=== PATIENT | female | born 1980 | race African-American/Black ===

== ENCOUNTER 2017-08-27 19:39 | Outpatient (CLI) | payer OTHER ==
[~2017-08-27] VITALS: Ht 172.7 cm; Wt 135.0 kg
[2017-08-27 19:54] VITALS: BP 118/68
[2017-08-27] MEDS ORDERED: PRENTAB9 PO (20:04)
[2017-08-27 20:45] VITALS: BP 122/70
== END 2017-08-27 21:04 | disposition home or self-care (01) ==
LOC: M LDO 19:39
PROVIDERS: ATTEND Obstetrics & Gynecology
DX: O47.1 False labor at or after 37 completed weeks of gestation (principal); Z3A.40 40 weeks gestation of pregnancy; O99.213 Obesity complicating pregnancy, third trimester; Z88.0 Allergy status to penicillin

== ENCOUNTER 2017-08-29 12:25 | Inpatient (IN) | payer OTHER ==
[2017-08-29] MEDS: LACTATED RINGER'S 1000 ML IV (16:25)
[2017-08-29] MEDS ORDERED: OXYTOCIN 30 UNITS IN 0.9% NaCl 500ML IV BAG (J2590) As Ordered (16:32)
[2017-08-29 16:41] LABS: MEAN CORPUSCULAR HEMOGLOBIN 27.9 pg (27.0-33.0); MEAN CORPUSCULAR HGB CONC 32.2 g/dl (32.0-36.5); MEAN CORPUSCULAR VOLUME 86.7 fl (80.0-96.0); PLATELET COUNT, AUTOMATED 258 10^3/uL (150-450); RED CELL DISTRIBUTION WIDTH 15.5 % (11.5-14.5); WHITE BLOOD COUNT 11.9 10^3/uL (4.0-10.0)
[2017-08-29] MEDS: OXYTOCIN DRIP 30 UNITS in APPROPRIATE DILUENT 1 EA IV (16:47)
[2017-08-29] MEDS ORDERED: PROMETHAZINE 25 MG TAB PO (17:30)
[2017-08-29] MEDS ORDERED: ONDANSETRON 4MG/2ML VIAL (J2405) IV (17:30)
[2017-08-29] MEDS ORDERED: MOM 30ML SUSPENSION UDC PO (17:30)
[2017-08-29] MEDS: IBUPROFEN 800 MG TAB PO (18:40)
[2017-08-29] MEDS: ACETAMINOPHEN 500 MG TAB PO (23:52)
[2017-08-30] MEDS: PRENATAL VITAMINS CHEWABLE TABLET PO (08:42)
[2017-08-30] MEDS: DIBUCAINE 1% OINTMENT 30GM TOP (09:09)
[2017-08-30] MEDS: DOCUSATE SODIUM 100 MG CAP PO (21:00)
[2017-08-30] MEDS: IBUPROFEN 800 MG TAB PO (21:01)
[2017-08-31] MEDS: PRENATAL VITAMINS CHEWABLE TABLET PO (08:18)
== END 2017-08-31 15:30 | disposition home or self-care (01) | DRG 775 ==
LOC: M LDO 12:25 → M LDI 16:16 → M OBS 18:21
PROVIDERS: Midwife
PROC: 10E0XZZ Delivery of Products of Conception, External Approach (ICD-10-PCS; principal; 2017-08-29)
DX: O99.214 Obesity complicating childbirth (principal); E66.9 Obesity, unspecified; Z68.38 Body mass index [BMI] 38.0-38.9, adult; Z3A.39 39 weeks gestation of pregnancy; Z37.0 Single live birth